=== PATIENT | female | born 1970 | race Two or more races ===

== ENCOUNTER 2021-05-22 13:17 | Outpatient (CLI) | payer OTHER | END 2021-05-22 13:37 | disposition home or self-care (01) | LOC: MRI 13:17 | PROVIDERS: ATTEND Orthopaedic Surgery | DX: M25.572 Pain in left ankle and joints of left foot (principal); M25.562 Pain in left knee | CPT/HCPCS: 73721 ==

== ENCOUNTER 2022-05-14 07:40 | Inpatient (IN) | payer OTHER ==
[~2022-05-14] VITALS: Ht 165.1 cm; Wt 60.3 kg
== END 2022-05-18 09:11 | disposition home or self-care (01) | DRG 743 ==
LOC: O/R 05-16 06:46 → OB/GYN 05-16 07:37
PROVIDERS: ADMIT Obstetrics & Gynecology Gynecologic Oncology; ATTEND Obstetrics & Gynecology Gynecologic Oncology
PROC: 0UT70ZZ Resection of Bilateral Fallopian Tubes, Open Approach (ICD-10-PCS; 2022-05-16)
PROC: 0UT20ZZ Resection of Bilateral Ovaries, Open Approach (ICD-10-PCS; 2022-05-16)
PROC: 0UT90ZZ Resection of Uterus, Open Approach (ICD-10-PCS; principal; 2022-05-16 10:15)
PROC: 0DBW0ZZ Excision of Peritoneum, Open Approach (ICD-10-PCS; 2022-05-17)
PROC: 0DNW0ZZ Release Peritoneum, Open Approach (ICD-10-PCS; 2022-05-17)
PROC: 0TN60ZZ Release Right Ureter, Open Approach (ICD-10-PCS; 2022-05-17)
PROC: 0DNU0ZZ Release Omentum, Open Approach (ICD-10-PCS; 2022-05-17)
PROC: 07BC0ZZ Excision of Pelvis Lymphatic, Open Approach (ICD-10-PCS; 2022-05-17)
PROC: 0DBU0ZZ Excision of Omentum, Open Approach (ICD-10-PCS; 2022-05-17)
PROC: 3E1M38Z Irrigation of Peritoneal Cavity using Irrigating Substance, Percutaneous Approach (ICD-10-PCS; 2022-05-17)
DX: D25.1 Intramural leiomyoma of uterus (principal); D25.2 Subserosal leiomyoma of uterus; N72 Inflammatory disease of cervix uteri; D27.1 Benign neoplasm of left ovary; D27.0 Benign neoplasm of right ovary; Z20.822 Contact with and (suspected) exposure to COVID-19